=== PATIENT | female | born 1985 | race African-American/Black ===

== ENCOUNTER 2025-09-28 05:44 | Emergency (ER) | payer MEDICAID, SELFPAY ==
[2025-09-28 05:58] VITALS: BP 116/69; PULSE 75; RESP 20; TEMP 36.7; O2SAT 98; BMI 40.0
--- NOTE | 2025-09-28 06:11 | ED.MEDCLEAR ---
HPI - Medical Clearance General Chief complaint: Medical Clearance Stated complaint: needs a prescription refill Time Seen by Provider: 09/28/25 06:11 Source: patient Mode of arrival: ambulatory Limitations: no limitations History of Present Illness ED Provider: HPI Narrative: Patient works as a [employer], lives in [place] currently stays and with the patient in [place] does have Re5ult, states has had some insurance issues of being prescribed medications across state lines, requesting pantoprazole, Zoloft and Eliquis refill. Last dose of Eliquis today Related Information Previous Rx's ?Medication ?Instructions ?Recorded apixaban 5 mg tablet (Eliquis) 5 mg PO BID 2 months #120 tabs 09/28/25 pantoprazole 40 mg tablet,delayed 40 mg PO DAILY #90 tabs 09/28/25 release sertraline 100 mg tablet (Zoloft) 100 mg PO DAILY #30 tabs 09/28/25 Allergies Allergy/AdvReac Type Severity Reaction Status Date / Time No Known Allergies Allergy Verified 09/28/25 06:03 Review of Systems Constitutional: Constitutional: Reports as per [facility] Social History Social History Advance Directives: No Advance Directives Information Provided: Yes Physical Exam Exam: Exam: conversational alert and oriented x4 without obvious asymmetry movement in face, upper and lower extremities generally examined sitting in the chair ambulatory Vital Signs: Vital Signs: Last Vital Signs Temp 98.1 F 09/28/25 05:58 Pulse 75 09/28/25 05:58 Resp 20 09/28/25 05:58 BP 116/69 09/28/25 05:58 Pulse Ox 98 09/28/25 05:58 O2 Del Method Room Air 09/28/25 05:58 BMI result Body Mass Index 40.0 Medical Decision Making Medical Decision Making [facility] Narrative: 6:56 AM 09/28/2025 (Dr. Pop Pickering): anticipating medication running out she is here for refills no other concerns or complaints Differential Diagnosis Differential Diagnoses: The differential diagnosis associated with the presentation includes ( here for medication refill) Social Determinants Patient?s care significantly limited by Social Determinants of Health including: Problems related to employment ( employment across state lines where she has insurance) Discharge Plan Discharge Clinical Impression: Encounter for medication refill Additional Instructions: please make sure you continue working with the your PCP to refill your medications, specifically antipsychotic medications are not prescribed emergency department for the more than 2 weeks to a month relying on PCP or psychiatrist to refill his medications, I am prescribing Eliquis, and pantoprazole as well. This was sent to [facility] pharmacy Prescriptions: New pantoprazole 40 mg tablet,delayed release (DR/EC) 40 mg PO DAILY Qty: 90 0RF sertraline [Zoloft] 100 mg tablet 100 mg PO DAILY Qty: 30 0RF Eliquis 5 mg tablet 5 mg PO BID 60 Days Qty: 120 0RF Print Language: Algerian
--- OUTSIDE RECORDS SUMMARY | 2025-09-28 06:12 | XMS_ITS | Clinical Summary ---
Author Organization Formerly [facility] Address [address] [place] [address] Care Team Providers Care Block Breaker Name Role Phone Aditi Ulloa Laura SALES VICE PRESIDENT Unavailable [phone] Raymond Johnson MD Primary Care Provider [phone] Allergies No known active allergies Medications * This document contains information received from the source organization and may not represent a complete record from that organization. acamprosate (CAMPRAL) 333 MG tabletIndicatio ns:Alcohol use disorder, severe, dependence (HCC) Take 2 tablets (666 mg total) by mouth 3 (three) times a day. 180 tablet 01/16/20 25 Active apixaban (ELIQUIS) 5 MG tabletIndicatio ns:Pulmonary embolism, unspecified chronicity, unspecified pulmonary embolism type, unspecified whether acute cor pulmonale present (HCC) Take 1 tablet (5 mg total) by mouth 2 (two) times a day. 60 tablet 01/16/20 25 Active melatonin 3 MG Tab tablet Take 1 tablet (3 mg total) by mouth nightly. 03/13/20 25 Active gabapentin (NEURONTIN) 100 MG capsule Take 3 capsules (300 mg total) by mouth 2 times a day. 03/09/20 25 Active chlorhexidine (Periogard) 0.12 % oral solution 15 mL by Transmucosal route every 12 hours. 05/04/20 25 Active Vit-Fe Fumarate-FA (M-VIT PO) Take 1 tablet by mouth every 24 hours. 05/02/20 25 Active norethindrone (MICRONOR) 0.35 MG tablet Take 1 tablet (0.35 mg total) by mouth. 10/06/20 25 Active PANTOprazole (PROTONIX) 40 MG EC tablet Take 1 tablet (40 mg total) by mouth. 07/02/20 25 025 Active levETIRAcetam (KEPPRA) 750 MG tabletIndicatio ns:Seizure disorder (HCC) Take 2 tablets (1,500 mg total) by mouth 2 (two) times a day. 360 tablet 3 08/31/20 25 Active sertraline (ZOLOFT) 50 MG tablet Take 1 tablet (50 mg total) by mouth daily. 03/08/20 25 025 Discontin ued(Thera py completed ) diphenhydrAMINE (BENADRYL) 50 MG capsuleIndicati ons:Seizure disorder (HCC) Take 1 capsule (50 mg total) by mouth 3 times daily (every 8 hours) as needed for itching. 03/27/20 25 025 Discontin ued(Thera py completed ) levETIRAcetam (KEPPRA) 750 MG tabletIndicatio ns:Seizure disorder (HCC) Take 2 tablets (1,500 mg total) by mouth 2 (two) times a day. 360 tablet 3 08/02/20 25 025 Discontin ued(Reord er) Active Problems Problem Noted Date Diagnosed Date Pre-diabetes 03/26/2025 Assessment & Plan (03/26/2025 3:48 PM EDT): - HgbA1C 6.0 on 03/26 Mixed hyperlipidemia 03/23/2025 Assessment & Plan (03/26/2025 3:48 PM EDT): - Not on statin, lipid panel showed LDL 150, follow up with PCP Assessment & Plan (03/25/2025 9:59 PM EDT): - Not on statin, lipid panel pending Assessment & Plan (03/24/2025 6:03 PM EDT): - Not on statin, lipid panel pending Assessment & Plan (03/23/2025 5:06 PM EDT): - Not on statin, lipid panel pending Morbid obesity with BMI of 45.0-49.9 03/23/2025 Assessment & Plan (03/26/2025 3:48 PM EDT): - Recommend lifestyle modification Assessment & Plan (03/25/2025 9:59 PM EDT): - Recommend lifestyle modification Assessment & Plan (03/24/2025 6:03 PM EDT): - Recommend lifestyle modification Assessment & Plan (03/23/2025 5:06 PM EDT): - Recommend lifestyle modification Anxiety and depression 03/23/2025 Assessment & Plan (03/26/2025 3:48 PM EDT): - On sertraline Assessment & Plan (03/25/2025 9:59 PM EDT): - On sertraline Assessment & Plan (03/24/2025 6:03 PM EDT): - On sertraline Assessment & Plan (03/23/2025 5:06 PM EDT): - On sertraline Breakthrough Seizures 03/22/2025 Assessment & Plan (03/26/2025 3:48 PM EDT): - On home Keppra with increased dose 1500 mg twice daily - On home gabapentin - On prn ativan - Neurology consulted, seizure precaution Assessment & Plan (03/25/2025 9:59 PM EDT): - EEG no seizure - MRI brain no acute problems - On home Keppra with increased dose 1500 mg twice daily - On prn ativan - On home gabapentin - Neurology consulted - PT recommended SNF on 03/25 Assessment & Plan (03/24/2025 6:03 PM EDT): - EEG no seizure - MRI brain no acute problems - On home Keppra with increased dose 1500 mg twice daily - On prn ativan - On home gabapentin - Neurology consulted Assessment & Plan (03/23/2025 5:06 PM EDT): - EEG no seizure - MRI brain pending - On home Keppra with increased dose 1500 mg twice daily - On prn ativan - On home gabapentin - Neurology consulted UTI with hematuria 03/22/2025 Assessment & Plan (03/26/2025 3:48 PM EDT): - Urine culture positive for E.coli - nitrofurantoin /05 for 5 days Assessment & Plan (03/25/2025 9:59 PM EDT): - Urine culture positive for E.coli - nitrofurantoin /05 for 5 days Assessment & Plan (03/24/2025 6:03 PM EDT): - Urine culture positive for E.coli - nitrofurantoin /05 for 5 days Assessment & Plan (03/24/2025 6:04 PM EDT): - On nitrofurantoin 06/05 for 5 days Severe alcohol use disorder 12/20/2024 Cocaine use disorder, mild, abuse 12/19/2024 Homeless 12/19/2024 Unemployed 12/19/2024 Tobacco dependence 12/19/2024 Assessment & Plan (03/26/2025 3:48 PM EDT): - On as needed nicotine gum Assessment & Plan (03/25/2025 9:59 PM EDT): - On as needed nicotine gum Assessment & Plan (03/24/2025 6:03 PM EDT): - On as needed nicotine gum Assessment & Plan (03/23/2025 5:06 PM EDT): - On as needed nicotine gum PCOS (polycystic ovarian syndrome) 12/19/2024 Alcohol abuse sober since 12/202412/18/2024 Assessment & Plan (03/26/2025 3:48 PM EDT): - On folic acid and multivitamin and thiamine - On home acamprosate Assessment & Plan (03/25/2025 9:59 PM EDT): - On folic acid and multivitamin and thiamine - On home acamprosate Assessment & Plan (03/24/2025 6:03 PM EDT): - On folic acid and multivitamin and thiamine - On home acamprosate Assessment & Plan (03/23/2025 5:06 PM EDT): - On folic acid and multivitamin and thiamine - On home acamprosate History of pulmonary embolus 12/18/2024 Assessment & Plan (03/26/2025 3:48 PM EDT): - On home apixaban Assessment & Plan (03/25/2025 9:59 PM EDT): - On home apixaban Assessment & Plan (03/24/2025 6:03 PM EDT): - On home apixaban Assessment & Plan (03/23/2025 5:06 PM EDT): - On home apixaban History of DVT 12/18/2024 Assessment & Plan (03/26/2025 3:48 PM EDT): - On home apixaban Assessment & Plan (03/25/2025 9:59 PM EDT): - On home apixaban Assessment & Plan (03/24/2025 6:03 PM EDT): - On home apixaban Assessment & Plan (03/23/2025 5:06 PM EDT): - On home apixaban Seizure disorder 12/18/2024 Alcohol intoxication 12/16/2024 Encounters Date Type Department Care Team Description 08/31/2025 2:15 PM EST Telemedicine [id number] [address] [place] [phone] Stephenie Reed, SALES VICE PRESIDENT Severe alcohol use disorder (HCC) (Primary Dx); Seizure disorder (HCC); Anxiety and depression 08/19/2025 12:56 PM EST - 08/19/2025 5:02 PM EST Emergency [facility] Emergency Department [address] [place] [phone] Hong Rogers MD Current mild episode of major depressive disorder, unspecified whether recurrent (Primary Dx); Mood disturbance Discharge Disposition: Home or Self Care 07/12/2025 9:26 AM EDT - 07/12/2025 11:59 PM EDT Hospital Encounter [facility] [address] [place] [phone] Stephenie Reed, SALES VICE PRESIDENT Discharge Disposition: Home or Self Care 07/11/2025 9:34 AM EDT - 07/11/2025 11:59 PM EDT Hospital Encounter [facility] [address] [place] [address] [place] [phone] Pedro Hall MD Seizure disorder (HCC) Discharge Disposition: Home or Self Care from Last 3 Months Social History Tobacco Use Types Packs/Day Years Used Date Smoking Tobacco: Every Day Cigarettes Tobacco Cessation:Ready to Q uit: Not Asked; Counseling Given: Not Answered Alcohol Use Standard Drinks/Week Comments Yes 0 (1 standard drink = 0.6 oz pure alcohol) V odka 2-3 pints or 4-5 25 oz natural Ice. [facility] Utilities Answer Date Recorded In the past 12 months has th e [employer], gas, oil, or water motify threatened to shut off services in your home? No 03/23/2025 AUDIT-C Answer Date Recorded Q1: How often do you have a drink containing alcohol? Never 03/22/2025 Q2: How many drinks containi ng alcohol do you have on a typical day when you are drinking? Patient does not drink Q3: How often do you have si x or more drinks on one occasion? Never 03/22/2025 Overall Financial Resource Strain (CARDIA) Answe r Date Recorded How hard is it for you to pa y for the very basics like food, housing, medical care, and heating? Not hard at all 03/23/2025 Hunger Vital Sign Answer Date Recorded Within the past 12 months, y ou worried that your food would run out before you got the money to buy more. Never true 03/23/20 25 Within the past 12 months, t he food you bought just didn't last and you didn't have money to get more. Never true 03/23/2025 PRAPARE - Transportation Answer Date Re corded In the past 12 months, has l ack of transportation kept you from medical appointments or from getting medications? No 03/2025 In the past 12 months, has l ack of transportation kept you from meetings, work, or from getting things needed for daily living? No 03/23/2025 Housing Stability Vital Sign Answer Clayton e Recorded In the last 12 months, was t here a time when you were not able to pay the mortgage or rent on time? No 03/23/2025 In the past 12 months, how m any times have you moved where you were living? 0 03/23/2025 At any time in the past 12 m [facility], were you homeless or living in a longterm (including now)? No 03/23/2025 Comments No Sex and Gender Information Value Date Recorded Sex Assigned at Female 04/23/2024 7:53 PM EDT Legal Sex Female 1:48 PM EDT Gender Identity Female 04/23/2024 7:53 PM EDT Sexual Orientation Heterosexual (straight) 04/23 7:53 PM EDT Last Filed Vital Signs Vital Sign Reading Time Taken Comments Blood Pressure 109/51 08/19/2025 4:59 PM EST Pulse 80 08/19/2025 4:59 PM EST Temperature 36.8 C (98.3 F) 08/19/2025 4:59 PM EST Respiratory Rate 16 08/19/2025 4:59 PM EST Oxygen Saturation 99% 08/19/2025 4:59 PM EST Inhaled Oxygen Concentration - - Weight 113 kg (248 lb 4 oz) 05/15/2025 10:18 AM EDT Height 152.4 cm (5') 12/18/2024 10:53 AM EST Body Mass Index 48.48 12/18/2024 10:53 AM EST Plan of Treatment Health Maintenance Due Date Last Done Comments Hepatitis C Virus Screening 1983 HIV Screening 1996 DTaP/Tdap/Td Vaccines (1 - Tdap) 2002 Hepatitis B Vaccines (1 of 3 - 19+ 3-dose series) 2002 Pneumococcal Vaccine: Pediat jaylin (0-5 Years) and At-Risk Patients (6 to 49 Years) (1 of 2 - PCV) 2002 Pap Smear (Ages 21-65) 2004 Mammogram 2023 Influenza Vaccine 05/18/2025 COVID-19 Vaccine ( - 2024- season) 2025 Hemoglobin A1C Discontinued 03/26/2025, 04/21/2024 Lipid Panel Discontinued 03/26/2025 HPV Vaccines (No Doses Required) Completed Procedures Procedure Name Priority Date/Time Associated Diagnosis Comments PHENCYCLIDINE (PCP) SCREEN, URINE STAT 08/19/2025 3:14 PM EST OPIATE SCREEN, URINE STAT 08/19/2025 3:14 PM EST ETHANOL, URINE STAT 08/19/2025 3:14 PM EST COCAINE SCREEN, URINE STAT 08/19/2025 3:14 PM EST CANNABINOID SCREEN, URINE STAT 08/19/2025 3:14 PM EST BENZODIAZEPINE SCREEN, URINE STAT 08/19/2025 3:14 PM EST BARBITURATE SCREEN, URINE STAT 08/19/2025 3:14 PM EST POCT GLUCOSE, FINGERSTICK (POCGLU) (NO CHARGE) Routine 08/19/2025 2:10 PM EST EEG AMB (TAKE HOME) Routine 07/12/2025 1 0:07 AM EDT Seizure disorder (HCC) HEMOGLOBIN A1C WITH ESTIMATED AVERAGE GLUCOSE Routine 03/26/2025 6:14 AM EDT LIPID PANEL Routine 03/26/2025 6:14 AM EDT from Last 3 Months or Most Recently Relevant to Health Maintenance Results * Cannabinoid Screen, Urine (08/19/2025 3:14 PM EST) Cannabinoid Screen, Urine Negative Negative <50 ng/mL 08/19/2025 3:46 PM EST [facility] Comment:* FOR MEDICAL PURPOS ES ONLY * Urine Urine specimen / Unknown 08/19/2025 3:14 PM EST 08/19/2025 3:16 PM EST us Wale Walton APRN URINE ORDERABLES Final Result [address] [address], [address] Lic [id number], [place] Lic [id number] [employer], [place] * Phencyclidine (PCP) Screen, Urine (08/19/2025 3:14 PM EST) PCP Screen, Urine Negative Negative <25 ng/mL 08/19/2025 10:49 PM EST [facility] Comment:* FOR MEDICAL PURPOS ES ONLY * Urine Urine specimen / Unknown 08/19/2025 3:14 PM EST 08/19/2025 3:16 PM EST us Wale Walton SALES VICE PRESIDENT URINE ORDERABLES Final Result [facility] [address] [place] [address], [address] [address] * Opiate Screen, Urine (08/19/2025 3:14 PM EST) Opiate, Urine Negative Negative <300 ng/mL 08/19/2025 3:46 PM EST [facility] Comment:* FOR MEDICAL PURPOS ES ONLY * Urine Urine specimen / Unknown 08/19/2025 3:14 PM EST 08/19/2025 3:16 PM EST Wale Walton SALES VICE PRESIDENT URINE ORDERABLES Final Result Performing Organization Address [facility] Co de Phone Number [address] [address], [address] [place] Lic [id number], [place] Lic [id number] [employer], [place] * Ethanol, Urine (08/19/2025 3:14 PM EST) Ethanol, Urine Negative Negative <11 mg/dL 08/19/2025 3:46 PM EST [facility] Urine Urine specimen / Unknown 08/19/2025 3:14 PM EST 08/19/2025 3:16 PM EST Walecooper Anton SALES VICE PRESIDENT URINE ORDERABLES Final Result Performing Organization Address City/[facility]/ZIP Co de Phone Number [address] [address], [address] [place] Lic [id number], CAP Lic [id number] [place], [place] * Cocaine Screen, Urine (08/19/2025 3:14 PM EST) Cocaine Screen, Urine Negative Negative <300 ng/mL 08/19/2025 3:46 PM EST [facility] Comment:* FOR MEDICAL PURPOS ES ONLY * Urine Urine specimen / Unknown 08/19/2025 3:14 PM EST 08/19/2025 3:16 PM EST Wale Walton APRN URINE ORDERABLES Final Result [address] [address], [address] [place] Lic [id number], [place] Lic [id number] [place], [place] * Benzodiazepine Screen, Urine (08/19/2025 3:14 PM EST) Benzodiazepine Screen, Urine Negative Negative <200 ng/mL 08/19/2025 3:46 PM EST [facility] Comment:* FOR MEDICAL PURPOS ES ONLY * Urine Urine specimen / Unknown 08/19/2025 3:14 PM EST 08/19/2025 3:16 PM EST Wale Walton APRN URINE ORDERABLES Final Result [address] [address], [address] [place] Lic [id number], [place] Lic [id number] [place], [place] * Barbiturate Screen, Urine (08/19/2025 3:14 PM EST) Barbiturate Screen, Urine Negative Negative <200 ng/mL 08/19/2025 3:46 PM EST [facility] Comment:* FOR MEDICAL PURPOS ES ONLY * Urine Urine specimen / Unknown 08/19/2025 3:14 PM EST 08/19/2025 3:16 PM EST Wale Walton SALES VICE PRESIDENT URINE ORDERABLES Final Result Performing Organization Address City/[facility]/ZIP Co de Phone Number [address] [address], [address] [place] Lic [id number], [place] Lic [id number] [employer], [place] * POCT Glucose, Fingerstick (08/19/2025 2:10 PM EST) POC Glucose 98 65 - 99 mg/dL 08/19/2025 2:17 PM EST Comment:Notified RN Blood specimen / Unknown 08/19/2025 2:10 PM EST 08/19/2025 2:17 PM EST Hong Rogers MD POINT OF CARE TEST ORDERAB LES Final Result Performing Organization Address City/[facility]/ZIP Co de Phone Number HOSPITAL LAB See Below * EEG 24 HOURS- UNATTENDED (07/12/2025 10:07 AM EDT) Narrative NATUS - 07/12/2025 10:07 AM EDT Bart Acosta MD 07/12/2025 2:43 PM ADULT AMBULATORY CONTINUOUS EEG REPORT Facility:[facility] Patient and : Santy Flores 1985 Date of Procedure: 07/11/2025 Referring:Pedro Hall MD Recording Period: 10:16:55 hrs on 07/11/25 through 9:39:41 hrs on 07/12/25. CLINICAL INFORMATION: The patient is a 40 y.o. female undergoing EEG to evaluate seizure frequency. SEIZURE MEDICATIONS: gabapentin and levetiracetam RECORDING CONDITIONS: EEG monitoring was performed during home activities. A minimum of 20 electrodes were applied according to the International 10-20 System. Data were obtained, stored, and interpreted according to ACNS guidelines (J Clin Neurophysiol 2006;23(2):85-183) utilizing referential montage recording, with reformatting to longitudinal, transverse bipolar, and referential montages as necessary for interpretation, along with digital/automated EEG analysis of Evin and Event detections. Logsheet returned: Yes brine process operator last name: roger DESCRIPTION OF EEG PATTERNS Posterior Activity: In the maximally awake state, posterior frequencies were symmetric consisting of 10 Hz activity with reactivity to eye opening. Background Activity: The background was symmetric and continuous consisting of a normal voltage, age-appropriate admixture of frequencies; anterior-posterior organization was normal. Reactivity/Variability/Sleep: Reactivity and state changes were present with relative disruption of the posterior rhythm and slowing in drowsiness. In deeper sleep, there were well-formed V waves, sleep spindles, and K complexes that were symmetric. Focal Slowing: None. Interictal Epileptiform Abnormalities: None. Other: Photic stimulation produced a driving response that was symmetric. Hyperventilation produced no clear changes. ECG: No notable ECG abnormalities were apparent. DESCRIPTION OF DAILY EEG AND EVENTS: Monitoring Day 1: 07/11/2025 1 event(s) reported or detected. Event #1 EEG Onset: NA EEG End: NA Patient/ family button time: 17:33:05 Logsheet time: 5:33pm Habitual: Unknown Patient Description of Event: Light headed and tired EEG: No EEG abnormalities were observed in association with this reported event. ECG shows pre event sinus rhythm around 75 bpm, followed post event marker by increase to around 100 bpm and associated chewing artifact. Monitoring Day 2: 07/12/25 1 event(s) reported or detected. Event #2 EEG Onset: NA EEG End: NA Patient/ family button time: 05:41:22 Logsheet time: 5:45 Habitual: Unknown Patient Description of Event: Shaky EEG: No EEG abnormalities were associated with this reported event. ECG demonstrates sinus rhythm that increases from 80 bpm to 100 bpm. E.E.G. CLASSIFICATION: Abnormal 1 day continuous ambulatory EEG Monitoring Study (without video) due to: Non-Epileptic Events: 2 potentially habitual event(s) captured involving shaky and lightheaded with no associated ictal EEG change. Ictal Events: None. Interictal Abnormalities: None. IMPRESSION: This EEG captured potentially habitual events most consistent with unspecified non-epileptic events. Bart Acosta MD. ABPN/ABPN UNLEAVENED DOUGH MIXER/ ABPN Epilepsy/ [facility] FOR EEG LAB USE: EEG Normal with Non-Epileptic Events Unspecified (!qxz&v52); Encephalopathy none (!qxz&v2); Focal Slowing None (!qxz&v12); Epileptiform Interictals: None (!qxz&v12) EVENTS ABNORMAL: Seizure None (!qxz&v21); Status Epilepticus None (!qxz&v34); Ictal-Interictal Continuum No (!qxz&v47) us Pedro Hall MD NEUROLOGY ORDERABLES Edited Resu lt - Final Performing Organization Address City/[facility]/ZIP Co de Phone Number [facility] [address] [place] [address], * (ABNORMAL) Hemoglobin A1c with Estimated Average Glucose (AM) (03/26/2025 6:14 AM EDT) Hemoglobin A1C 6.0(H) <5.7 % 03/26/2025 11:57 AM EDT [facility] Comment: A1c% Interpretation 5.7 - 6.0 Increase risk of diabetes 6.1 - 6.4 Higher risk of diabetes > or = 6.5 Consistent with diabetes Diabetes Care, 33(Supp 1):S1-S61, 2009 Estimated Average Glucose 126 mg/dL 03/26/2025 11:57 AM EDT [facility] Blood Blood specimen / Unknown 03/26/2025 6:14 AM EDT 03/26/2025 6:26 AM EDT us Darling Greenberg MD LAB BLOOD ORDERABLES Final Resul t Performing Organization Address [facility] [place] [address], [address] [address] * (ABNORMAL) Lipid Panel (AM) (03/26/2025 6:14 AM EDT) Cholesterol, Total 225(H) <200 mg/dL 2024 10:42 AM EDT [facility] Triglycerides 108 <150 mg/dL 03/26/2025 10:42 AM EDT [facility] Cholesterol, HDL 53 >39 mg/dL 03/26/20 25 10:42 AM EDT [facility] Estimated LDL 150(H) <130 mg/dL 03/26/2025 10:42 AM EDT [facility] Comment: NCEP Guidelines: < 100 mg/dL Optimal 100 - 129 mg/dL Near Optimal/Above Optimal 130 - 159 mg/dL Borderline High 160 - 189 mg/dL High >/= 190 mg/dL Very High Cholesterol/HDL Ratio 4.2 0.0 - 5.0 Ratio 03/26/2025 10:42 AM EDT [facility] Comment: Relative Risk Ratio - Male Ratio - Female 0.5 3.4 3.3 1.0 5.0 4.4 2.0 9.6 7.1 3.0 23.4 11.0 Blood Blood specimen / Unknown 03/26/2025 6:14 AM EDT 03/26/2025 6:26 AM EDT Darling Greenberg MD LAB BLOOD ORDERABLES Final Resul t Performing Organization Address City/State/[facility] Co de Phone Number [address] [address], [address] [address] from Last 3 Months or Most Recently Relevant to Health Maintenance [place] [address] [place] [address] [facility] Advance Directives * Full Code (Latest Code Status on File) Date Activated Date Inactivated Comments 03/22/2025 6:41 PM 08/19/2025 12:54 PM Care Teams Block Breaker Relationship Specialty Start Date End Date Raymond Johnson MD [address] [place] [id number] PCP - General Internal Medicine 08/19/25 Aditi Ulloa APRN [address] [place] [address] Nurse Practitioner Psychiatry, General 12/22/24
--- OUTSIDE RECORDS SUMMARY | 2025-09-28 06:12 | XMS_ITS | Clinical Summary ---
Author Organization [facility] Address [address] [place] [address] Phone Care Team Providers Care Watch Hairspring Assembler Name Role Phone Raymond Johnson MD Primary Care Provider [phone] Allergies No known active allergies Medications acetaminophen (TYLENOL) 325 mg tablet Take 2 tablets (650 mg total) by mouth every 6 (six) hours as needed. 0 Active albuterol HFA (PROAIR HFA ; PROVENTIL HFA ; VENTOLIN HFA) 90 mcg/actuation inhaler Inhale 2 puffs into the lungs every 6 (six) hours as needed for wheezing. 3 Active apixaban (ELIQUIS) 5 mg tablet Take 1 tablet (5 mg total) by mouth every 12 (twelve) hours. 4 Active folic acid (FOLVITE) 1 mg tablet Take 1 tablet (1 mg total) by mouth daily. 4 Active levETIRAcetam (KEPPRA) 500 mg tablet Take 1 tablet (500 mg total) by mouth 2 (two) times a day. 4 Active thiamine 100 mg tablet Take 1 tablet (100 mg total) by mouth daily. 4 Active methocarbamoL (ROBAXIN) 750 mg tablet Take 1 tablet (750 mg total) by mouth 3 (three) times a day if needed for muscle spasms for up to 10 days. 30 tablet 5 Active Additional Information Patient not taking.Reported on 07/23/2025 sertraline (ZOLOFT) 50 mg tablet Take 1 tablet (50 mg total) by mouth 1 (one) time each day. 5 Active sertraline (ZOLOFT) 25 mg tablet Take 2 tablets (50 mg total) by mouth 1 (one) time each day. Active pantoprazole (PROTONIX) 40 mg EC tabletIndication s:Gastroesophage al reflux disease, unspecified whether esophagitis present Take 1 tablet (40 mg total) by mouth 1 (one) time each day. Do not crush, chew, or split. 30 each 2 5 09/30/20 25 Active nicotine polacrilex (COMMIT) 4 mg lozengeIndicatio ns:Smoking history Dissolve 1 lozenge (4 mg total) in the mouth every 2 (two) hours if needed for smoking cessation. 270 each 5 Active Additional Information Patient not taking.Reported on 07/23/2025 nicotine (NICODERM CQ) 21 mg/24 [address]Indications:[address] o[address] history Place 1 patch on the skin 1 (one) time each day at the same time. 56 each 5 Active Additional Information Patient not taking.Reported on 07/23/2025 norethindrone (KAYODE,GAVIOTA,HE ATHER,MICRONOR) 0.35 mg tabletIndication s:PCOS (polycystic ovarian syndrome) Take 1 tablet (0.35 mg total) by mouth 1 (one) time each day. 84 tablet 5 Active Active Problems Problem Noted Date Diagnosed Date Chest pain 05/20/2024 Seizure 04/21/2024 Syncope and collapse 04/20/2024 Acute deep vein thrombosis ( DVT) of popliteal vein of right lower extremity 05/15/2020 Acute pulmonary embolism 05/15/2020 Morbid obesity 05/15/2020 Secondary hypercoagulable state 05/15/2020 Pulmonary embolism, bilateral 05/14/2020 Diabetes 03/15/2020 Hypercholesterolemia 03/15/2020 PCOS (polycystic ovarian syndrome) 03/15/2020 Encounters Date Type Department Care Team Description 08/01/2025 12:52 PM EDT - 08/01/2025 11:59 PM EDT Hospital [facility] [address] [place] [address] [place] [facility] Shortness of breath Discharge Disposition: Home or Self Care 07/30/2025 4:00 PM EDT - 07/30/2025 11:59 PM EDT Hospital Encounter [facility] [address] [place] [id number] At risk for obstructive sleep apnea Discharge Disposition: Home or Self Care 07/23/2025 9:30 AM EDT Office Visit Obstetrics and Gynecology [facility] [address] [place] [address] Cori Sierra, CAREY PCOS (polycystic ovarian syndrome) (Primary Dx) 07/19/2025 9:55 AM EDT - 07/19/2025 11:59 PM EDT Hospital Encounter [facility] Pulmonary Lab [address] [place] [id number] Shortness of breath Discharge Disposition: Home or Self Care 07/10/2025 1:14 PM EDT - 07/10/2025 11:59 PM EDT Hospital Encounter [facility] OB Ultrasound [address] [place] [phone] Irregular menses Discharge Disposition: Home or Self Care 07/03/2025 Telephone Obstetrics and Gynecology - [address] [place] [id number] Arun Cervantes RN 07/02/2025 10:00 AM EDT Clinical Support Pul[facility]ology - [facility] [address] [place] [address] Gastroesophageal reflux disease, unspecified whether esophagitis present (Primary Dx); Shortness of breath; At risk for obstructive sleep apnea; Smoking history from Last 3 Months Immunizations Immunization Administration Dates Next Due Tdap Tetanus diptheria acell ular pertussis (Boostrix; Adacel) 7yo and older 12/18/2023,07/03/2022 Medical History Medical History Date Comments Diabetes mellitus ([facility] V24, [facility] V28) DVT (deep venous thrombosis) ([facility] V24, [facility] V28) Hypercholesterolemia PCOS (polycystic ovarian syndrome) Pulmonary embolism ([facility] V24, [facility] V28) Social History Tobacco Use Types Packs/Day Years Used Date Smoking Tobacco: Never Assessed Housing Instability Answer Date Recorde d Are you worried that in the next 2 months you may not have stable housing? Yes 06/24/2025 Food Access & Nutrition Answer Date Rec orded Do you have access to a vari ety of food including fruits and vegetables? No 06/24/2025 Access to Healthcare Answer Date Record ed Within the last 3 months, ho w many times did you visit the emergency department for your medical care? 6 06/24/2025 Health Literacy Answer Date Recorded How often do you need to hav e someone help you when you read instructions, pamphlets, or other written material from your doctor or pharmacy? Never 06/24/2025 Caregiver: How often do you need to have someone help you when you read instructions, pamphlets, or other written material from your doctor or pharmacy? Not on file 06/24/2025 Financial Risk Answer Date Recorded How hard is it for you to pa y for the very basics like food, housing, medical care, and air conditioning / heating? Somewhat hard 06/24/2025 Transportation Answer Date Recorded Has the lack of transportati on kept you from meetings, work, or from getting things needed for daily living? Yes Has the lack of transportati on kept you from medical appointments or from getting medications? Yes 06/24/2025 Social Isolation Answer Date Recorded How often do you feel lonely or isolated from th ose around you? Often 06/24/2025 Food Risk Answer Date Recorded Within the past 12 months we worried whether our food would run out before we got money to buy more. Never true 06/24/2025 Within the past 12 months th e food we bought just didn't last and we didn't have money to get more. Never true 06/24/2025 Dependent Care Answer Date Recorded Do you need help finding or paying for care for your loved ones. For example, children's author or elderly care for an older adult? No 06/24/2025 Education Answer Date Recorded Do you think completing more education or training, like finishing a GED, going to college, or learning a trade, would be helpful for you? Yes 06/24/2025 Employment and Income Answer Date Recor ded During the last four weeks, have you been actively looking for work? No 06/24/2025 Living Situation Answer Date Recorded What is your living situation? Unrecognized valu e 06/24/2025 Comments Unknown Sex and Gender Information Value Date Recorded Sex Assigned at Female 11/18/2024 8:27 PM EST Legal Sex Female 7:12 PM EST Gender Identity Female 11/18/2024 8:27 PM EST Sexual Orientation Straight 12/09/2024 8: 05 PM EST Last Filed Vital Signs Vital Sign Reading Time Taken Comments Blood Pressure 108/66 08/01/2025 2:04 PM EDT Pulse 80 07/02/2025 9:56 AM EDT Temperature 36.6 C (97.9 F) 07/02/2025 9:56 AM EDT Respiratory Rate 20 07/02/2025 9:56 AM EDT Oxygen Saturation 100% 07/02/2025 9:56 AM EDT Inhaled Oxygen Concentration - - Weight 117 kg (257 lb 15 oz) 08/01/2025 2:04 PM EDT Height 167.6 cm (5' 6 ) 08/01/2025 2:04 PM EDT Body Mass Index 41.63 08/01/2025 2:04 PM EDT Plan of Treatment Upcoming Encounters Date Type Department Care Team (Late st Contact Info) Description 10/01/2025 9:45 AM EST Clinical Support [facility]ology - [facility] [address] [place] [address] 10/02/2025 3:30 PM EST Appointment [address] [address] 10/15/2025 12:30 PM EST Clinical Support G[facility]enterology - [facility] [address] [place] [address] 10/24/2025 8:45 AM EST Office Visit Obstetrics and Gynecology [facility] [address] [place] [address] [facility] [address] [place] [address] Health Maintenance Due Date Last Done Comments Breast Cancer Screening 1983 Diabetes: Annual Foot Exam 1993 Diabetes: Annual Retina Eye Exam 1993 Hepatitis A Vaccines (1 of 2 - Risk 2-dose series) 2002 Hepatitis B Vaccines (1 of 3 - 19+ 3-dose series) 2002 Pneumococcal Vaccine: Pediatrics (0 to 5 Years) and At-Risk Patients (6 to 49 Years) (1 of 2 - PCV) 2002 HPV Vaccines (1 - 3-dose SCDM series) 2010 Diabetes: Annual Urine Albumin-Creatinine Ratio (uACR) 10/04/2022 COVID-19 Vaccine ( season) 2025 Influenza Vaccine (#1) 2025 Diabetes: Blood Sugar Control Test (HGBA1C) 09/25/2025 03/26/2025, 04/21/2024, 04/21/2024, Additional history exists Diabetes: Annual GFR (Glomerular Filtration Rate) 03/26/2026 03/26/2025, 03/26/2025, 03/22/2025, Additional history exists Social Influencers of Health Screening 06/24/2026 06/24/2025 Cholesterol Screening (Lipid Panel) 03/26/2030 03/26/2025, 05/21/2024, 05/21/2024, Additional history exists Cervical Cancer Screening: HPV 07/03/2030 07/03/2025, 07/03/2025 DTaP,Tdap,and Td Vaccines (3 - Td or Tdap) 12/17/2033 12/18/2023, 07/03/2022 RSV Immunization Adult Patients (1 - 1-dose 75+ series) 2058 HIV Screening Completed 06/25/2025 Hepatitis C Screening Completed 06/25/2025 Depression Screening Completed 07/16/2025 HIB Vaccines Aged Out No longer eligi ble based on patient's age to complete this topic IPV Vaccines Aged Out No longer eligi ble based on patient's age to complete this topic MMR Vaccines Aged Out No longer eligi ble based on patient's age to complete this topic Meningococcal ACWY Vaccine Aged Out N o longer eligible based on patient's age to complete this topic Meningococcal B Vaccine Aged Out No l onger eligible based on patient's age to complete this topic RSV Immunization Patients Under 20 months Aged Out No longer eligible based on patient's age to complete this topic Varicella Vaccines Aged Out No longer eligible based on patient's age to complete this topic Procedures Procedure Name Priority Date/Time Associated Diagnosis Comments TRANSTHORACIC ECHOCARDIOGRAM (TTE) COMPLETE Routine 08/01/2025 1:50 PM EDT Shortness of breath HOME SLEEP TEST Routine 08/01/2025 10:24 AM EDT At risk for obstructive sleep apnea POC URINE AUTO W/O MICRO Routine 07/23/2025 10:22 AM EDT PCOS (polycystic ovarian syndrome) HC DIFFUSING CAPACITY Routine 07/19/2025 10:51 AM EDT Shortness of breath US PELVIS TRANSVAGINAL NON OB Routine 07/10/2025 2:49 PM EDT Irregular menses US PELVIS NON OB COMPLETE Routine 07/10/2025 2:49 PM EDT Irregular menses HPV GENOTYPE Routine 07/03/2025 11:44 AM EDT Cervical cancer screening HPV HIGH RISK PCR Routine 07/03/2025 11: 43 AM EDT Cervical cancer screening HEPATITIS C ANTIBODY Routine 06/25/2025 2:36 PM EDT Screen for STD (sexually transmitted disease) HIV 1, 2 ANTIBODY, P24 ANTIGEN WITH REFLEX TO DIFFERENTIATION Routine 06/25/2025 2:36 PM EDT Screen for STD (sexually transmitted disease) BASIC METABOLIC PANEL STAT 11/19/2024 1:22 AM EST LIPID PANEL Routine 05/21/2024 HEMOGLOBIN A1C Routine 04/21/2024 from Last 3 Months or Most Recently Relevant to Health Maintenance Results * (ABNORMAL) TRANSTHORACIC ECHOCARDIOGRAM (TTE) COMPLETE (08/01/2025 1:50 PM EDT) LV EDV (A2C) 79 mL CV PACS LV EDV (A4C) 86 mL CV PACS LV Diastolic Volume (BP) 83 46 - 106 mL CV PACS LV ESV (A2C) 25 mL CV PACS LV ESV (A4C) 33 mL CV PACS LV Systolic Volume (BP) 30 14 - 42 mL CV PACS Left Ventricle Isovolumic Relaxation Time 76 ms CV PACS IVSD 0.7 0.6 - 0.9 cm CV PACS LVIDD 4.2 3.8 - 5.2 cm CV PACS LVIDS 2.9 2.2 - 3.5 cm CV PACS LVOT Mean Grad 4 mmHg CV PACS LVOT Peak VTI 26.3 cm CV PACS LVOT Mean Aren 0.9 m/s CV PACS LVOT Peak Aren 1.3 m/s CV PACS LVOT Peak Gradient 7 mmHg CV PACS LVPWD 0.7 0.6 - 0.9 cm CV PACS MV E' Tissue Velocity Lateral 16 cm/s CV PACS MV E' Tissue Velocity Septal 9 cm/s CV PACS Ejection Fraction (A2C) 68 % CV PACS Ejection Fraction (A4C) 62 % CV PACS Ejection Fraction (BP) 64 % CV PACS Left Atrium Minor Newton 5.1 cm CV PACS Left Atrium Major Newton 4.8 cm CV PACS LA Area Sys (A2C) 12 cm2 CV PACS LA Area Sys (A4C) 12 cm2 CV PACS LA Volume (BP) 24 mL CV PACS LA Size 3.5 cm CV PACS RA Area 9.4 cm2 CV PACS RA 2D Volume 18 mL CV PACS Aortic Valve Cusp Separation mMode 2.3 cm CV PACS AV Peak Aren 1.2 m/s CV PACS AV Peak Gradient 5 mmHg CV PACS Aortic Root 3.5 cm CV PACS Aortic Root M-mode 3.50 cm CV PACS IVC Proximal 1.1 cm CV PACS MV Deceleration Stark 3.9 m/s2 CV PACS E Wave Deceleration Time 141 119 - 242 ms CV PACS MV PHT 41 ms CV PACS MV Peak A Aren 0.48 m/s CV PACS MV Peak E Aren 0.55 m/s CV PACS MV Area PHT 5.4 cm2 CV PACS PV Peak Velocity 0.7 m/s CV PACS PV Peak Gradient 2 mmHg CV PACS RV Diastolic Basal Dimension 2.8 2.5 - 4.1 cm CV PACS RV S' 11 cm/s CV PACS TAPSE 20 mm CV PACS E/E' Ratio Septal 6 CV PACS E/E' Ratio Averaged 5 CV PACS Relative Wall Thickness ratio 0.33 CV PACS FS 31 % CV PACS LV Mass 2D 85 g CV PACS AV Velocity Ratio 1.08 CV PACS E/A Ratio 1.1 CV PACS E/E' Ratio Lateral 3 CV PACS LA/Ao Ratio 1.0 CV PACS BSA 2.33 m2 CV PACS LV Diastolic Volume Index (BP) 37 29 - 61 mL/m2 CV PACS LV Systolic Volume Index (BP) 13 8 - 24 mL/m2 CV PACS LV EDV Index (A4C) 39 mL/m2 CV PACS LV ESV Index (A4C) 15 mL/m2 CV PACS LV EDV Index (A2C) 35 mL/m2 CV PACS LV ESV Index (A2C) 11 mL/m2 CV PACS LA Volume Index (BP) 11 mL/m2 CV PACS LVIDD Index 1.88 cm/m2 CV PACS LVIDS Index 1.30 cm/m2 CV PACS LV Mass Index 2D 38(A) 44 - 88 g/m2 CV PACS LA Dimension Index 2D 1.6 cm/m2 CV PACS RA 2D Volume Index 8 15 - 27 mL/m2 CV PACS Aortic Root Index 1.57 cm/m2 CV PACS Anatomical Region Laterality Modality Ultrasound Narrative 08/01/2025 3:11 PM EDT Left ventricle cavity size is normal. Left ventricular systolic function is in the normal range with an ejection fraction in the 55-70% range. No regional LV wall motion abnormalities noted. Left ventricle wall thickness is normal. Right ventricle cavity is normal. Right ventricular systolic function is normal. No significant valvular dysfunction. No pericardial effusion. Left Ventricle Left ventricle cavity size is normal. Wall thickness is normal. Systolic function is normal with an ejection fraction in the 55-70% range. There are no regional LV wall motion abnormalities. There is no diastolic dysfunction. Right Ventricle Right ventricle cavity appears normal. Systolic function is normal. Normal TAPSE (> 17 mm). Normal systolic excursion velocity by TDI (>9.5 cm/s). Left Atrium Left atrium cavity size is normal. Right Atrium Right atrium cavity is normal. IVC/SVC Inferior vena cava structure is normal. RA pressures is estimated to be 3 mmHg (IVC diameter <21 mm and decreases >50% during inspiration). Mitral Valve Mitral valve structure is normal. There is no significant mitral valve regurgitation. There is no significant stenosis noted. Tricuspid Valve Tricuspid valve structure is normal. There is no significant regurgitation. There is no significant tricuspid valve stenosis. Aortic Valve The aortic valve is trileaflet. The leaflets are not thickened and exhibit normal excursion. There is no regurgitation or stenosis. Pulmonic Valve The pulmonic valve was not well visualized. No significant pulmonic valve regurgitation. No significant pulmonary valve stenosis noted. Ascending Aorta The aorta appears normal in size. Pericardium Pericardium appears normal. There is no pericardial effusion. Study Details Overall the study quality was adequate. Additional technique includes 3D imaging and postprocessing performed without an independent workstation. The underlying ECG rhythm was sinus rhythm. Wall Scoring Baseline Score Index: 1.00 The left ventricular wall motion is normal. us Garfield Rosenbaum MD CV ECHO PROCEDURES Final Result * Home sleep test (08/01/2025 10:24 AM EDT) us Garfield Rosenbaum MD SLEEP CENTER ORDERABLES Final R esult * POC Urine Auto W/O Micro (07/23/2025 10:22 AM EDT) Glucose UA POC Negative Negative, Trace mg/dL Ketones UA POC Negative Negative Protein UA POC Negative Negative mg/dL Nitrite UA POC Negative Negative Leukocytes UA POC Negative Negative Urine Urine specimen obtained by clean catch procedure / Unknown 07/23/2025 10:22 AM EDT Cori BAINS POINT OF CARE TEST ENTE R/EDJOSE L ORDERABLES Final Result * Pulmonary function testing: Spirometry with Bronchodilator, Nitrogen Wash Out, Carbon Monoxide Diffusing Capacity (07/19/2025 10:51 AM EDT) Narrative Garfield Rosenbaum MD - 07/19/2025 11:28 AM EDT Spirometry without obstruction or significant bronchodilator response. FEV1 and FVC are within normal limits. Lung volumes normal based on TLC. There is reduction in RV/ERV likely related to BMI. Diffusion capacity is normal. Summary: Low RV/ERV likely in the setting of obesity related lung disease. Otherwise normal PFT's. None prior for comparison. Garfield Rosenbaum MD PFT ORDERABLES Final Result * US Pelvis Non OB Complete (07/10/2025 2:49 PM EDT) Anatomical Region Laterality Modality Body, Pelvis Ultrasound 07/10/2025 2:43 PM EDT Narrative 07/10/2025 3:11 PM EDT Female Pelvis (Signed Final 07/10/2025 03:11 pm) PATIENT INFO: ID #: [id number] : [birth year] (40 yrs)(F) Name: EM FLORES Visit Date: 07/10/2025 02:43 pm PERFORMED BY: Attending: Dyllan Carreno MD Performed By: Darlene Ariza RDMS Referred By: CORI SIERRA [facility] Ref. Address: [address] [place] [address] Location: [facility] Ultrasound (OBU) SERVICE(S) PROVIDED: US Pelvic Complete 27914 US Transvaginal 70998 INDICATIONS: Irregular menstruation, unspecified N92.6 TECHNIQUE/SCAN QUALITY: Technique: A transabdominal and a transvaginal scan were completed at today's visit Scan Quality: Satisfactory. COMPARISON: None CLINICAL INFORMATION: Age: 40 Menses: Irregular. UTERUS: Size (cm) L: 7.57 W: 4.37 H: 3.64 Vol(ml): 63.05 Position: Anteverted, anteflexed. Comment: Normal appearance. Normal size and echotexture. ENDOMETRIUM: Thickness: 7.31 mm Comment: The endometrial cavity is symmetric. The endometrial lining is regular. Single layer thickness measures 0.37 cm. CERVIX: No abnormality visualized. RIGHT OVARY: Size(cm): 2.43 x 2.46 x 1.97 Vol(ml): 6.17 Comment: Normal appearance. The ovary is located between the uterus and the pelvic sidewall. RIGHT ADNEXA: Comment: No abnormality visualized. LEFT OVARY: Size(cm): 3.01 x 2.23 x 2.48 Vol(ml): 8.72 Comment: Normal appearance. The ovary is located between the uterus and the pelvic sidewall. LEFT ADNEXA: Comment: No abnormality visualized. CUL-DE-SAC: There is no free fluid in the cul de sac. BLADDER: Distended with regular contour. COMMENTS: Ms. Flores is referred today for irregular menses, facial hair, and weight gain. Her testosterone is elevated. Concerns for PCOS. This is a negative scan of the pelvis. Dyllan Carreno MD Electronically Signed Final Report 07/10/2025 03:11 pm Procedure Dyllan Dukes MD - 07/10/2025 Female Pelvis (Signed Final 07/10/2025 03:11 pm) PATIENT INFO: ID #: [id number] : [birth year] (40 yrs)(F) Name: EM FLORES Visit Date: 07/10/2025 02:43 pm PERFORMED BY: Attending: Dyllan Carreno MD Performed By: Darlene Ariza RDMS Referred By: CORI SIERRA [facility] Ref. Address: [address] [place] [address] [place] [address] Location: [facility] Ultrasound (OBU) SERVICE(S) PROVIDED: US Pelvic Complete 48287 US Transvaginal [address]1654 INDICATIONS: Irregular menstruation, unspecified N92.6 TECHNIQUE/SCAN QUALITY: Technique: A transabdominal and a transvaginal scan were completed at today's visit Scan Quality: Satisfactory. COMPARISON: None CLINICAL INFORMATION: Age: 40 Menses: Irregular. UTERUS: Size (cm) L: 7.57 W: 4.37 H: 3.64 Vol(ml): 63.05 Position: Anteverted, anteflexed. Comment: Normal appearance. Normal size and echotexture. ENDOMETRIUM: Thickness: 7.31 mm Comment: The endometrial cavity is symmetric. The endometrial lining is regular. Single layer thickness measures 0.37 cm. CERVIX: No abnormality visualized. RIGHT OVARY: Size(cm): 2.43 x 2.46 x 1.97 Vol(ml): 6.17 Comment: Normal appearance. The ovary is located between the uterus and the pelvic sidewall. RIGHT ADNEXA: Comment: No abnormality visualized. LEFT OVARY: Size(cm): 3.01 x 2.23 x 2.48 Vol(ml): 8.72 Comment: Normal appearance. The ovary is located between the uterus and the pelvic sidewall. LEFT ADNEXA: Comment: No abnormality visualized. CUL-DE-SAC: There is no free fluid in the cul de sac. BLADDER: Distended with regular contour. COMMENTS: Ms. Flores is referred today for irregular menses, facial hair, and weight gain. Her testosterone is elevated. Concerns for PCOS. This is a negative scan of the pelvis. Dyllan Carreno MD Electronically Signed Final Report 07/10/2025 03:11 pm us Cori Sierra [facility] US PROCEDURES Final Result * US Pelvis Transvaginal Non OB (07/10/2025 2:49 PM EDT) Anatomical Region Laterality Modality Body Ultrasound 07/10/2025 2:43 PM EDT Narrative 07/10/2025 3:11 PM EDT Female Pelvis (Signed Final 07/10/2025 03:11 pm) PATIENT INFO: ID #: [id number] : [birth year] (40 yrs)(F) Name: EM FLORES Visit Date: 07/10/2025 02:43 pm PERFORMED BY: Attending: Dyllan Carreno MD Performed By: Darlene Ariza RDMS Referred By: [facility]I [facility] Ref. Address: [address] [place] [address] Location: [facility] Ultrasound (OBU) SERVICE(S) PROVIDED: US Pelvic Complete 09278 US Transvaginal 05573 INDICATIONS: Irregular menstruation, unspecified N92.6 TECHNIQUE/SCAN QUALITY: Technique: A transabdominal and a transvaginal scan were completed at today's visit Scan Quality: Satisfactory. COMPARISON: None CLINICAL INFORMATION: Age: 40 Menses: Irregular. UTERUS: Size (cm) L: 7.57 W: 4.37 H: 3.64 Vol(ml): 63.05 Position: Anteverted, anteflexed. Comment: Normal appearance. Normal size and echotexture. ENDOMETRIUM: Thickness: 7.31 mm Comment: The endometrial cavity is symmetric. The endometrial lining is regular. Single layer thickness measures 0.37 cm. CERVIX: No abnormality visualized. RIGHT OVARY: Size(cm): 2.43 x 2.46 x 1.97 Vol(ml): 6.17 Comment: Normal appearance. The ovary is located between the uterus and the pelvic sidewall. RIGHT ADNEXA: Comment: No abnormality visualized. LEFT OVARY: Size(cm): 3.01 x 2.23 x 2.48 Vol(ml): 8.72 Comment: Normal appearance. The ovary is located between the uterus and the pelvic sidewall. LEFT ADNEXA: Comment: No abnormality visualized. CUL-DE-SAC: There is no free fluid in the cul de sac. BLADDER: Distended with regular contour. COMMENTS: Ms. Flores is referred today for irregular menses, facial hair, and weight gain. Her testosterone is elevated. Concerns for PCOS. This is a negative scan of the pelvis. Dyllan Carreno MD Electronically Signed Final Report 07/10/2025 03:11 pm Procedure Note Dyllan Carreno MD - 07/10/2025 Female Pelvis (Signed Final 07/10/2025 03:11 pm) PATIENT INFO: ID #: [id number] : [birth year] (40 yrs)(F) Name: EM FLORES Visit Date: 07/10/2025 02:43 pm PERFORMED BY: Attending: Dyllan Carreno MD Performed By: Darlene Ariza RDMS Referred By: CORI SIERRA CNM Ref. Address: [address] [place] [id number] Location: [facility] Ultrasound (OBU) SERVICE(S) PROVIDED: Pelvic Complete 19550 US Transvaginal 34560 INDICATIONS: Irregular menstruation, unspecified N92.6 TECHNIQUE/SCAN QUALITY: Technique: A transabdominal and a transvaginal scan were completed at today's visit Scan Quality: Satisfactory. COMPARISON: None CLINICAL INFORMATION: Age: 40 Menses: Irregular. UTERUS: Size (cm) L: 7.57 W: 4.37 H: 3.64 Vol(ml): 63.05 Position: Anteverted, anteflexed. Comment: Normal appearance. Normal size and echotexture. ENDOMETRIUM: Thickness: 7.31 mm Comment: The endometrial cavity is symmetric. The endometrial lining is regular. Single layer thickness measures 0.37 cm. CERVIX: No abnormality visualized. RIGHT OVARY: Size(cm): 2.43 x 2.46 x 1.97 Vol(ml): 6.17 Comment: Normal appearance. The ovary is located between the uterus and the pelvic sidewall. RIGHT ADNEXA: Comment: No abnormality visualized. LEFT OVARY: Size(cm): 3.01 x 2.23 x 2.48 Vol(ml): 8.72 Comment: Normal appearance. The ovary is located between the uterus and the pelvic sidewall. LEFT ADNEXA: Comment: No abnormality visualized. CUL-DE-SAC: There is no free fluid in the cul de sac. BLADDER: Distended with regular contour. COMMENTS: Ms. Flores is referred today for irregular menses, facial hair, and weight gain. Her testosterone is elevated. Concerns for PCOS. This is a negative scan of the pelvis. Dyllan Carreno MD Electronically Signed Final Report 07/10/2025 03:11 pm Cori Sierra CNM IM US PROCEDURES Final Result * HPV genotype (07/03/2025 11:44 AM EDT) HPV Type 16 Negative Negative LAB MOLECULAR DIAGNOSTICS METHOD 07/07/2025 3:33 AM EDT [facility] HPV Type 18/45 Negative Negative LAB MOLECULAR DIAGNOSTICS METHOD 07/07/2025 3:33 AM EDT [facility] Brushing/Spatula Cervix uteri structure / Unknown 07/03/2025 11:44 AM EDT 07/03/2025 11:49 AM EDT Cori Sierra CNM LAB MOLECULAR DIAGNOSTI CS ORDERABLES Final Result Performing Organization Address City/[facility]/ZIP Co de Phone Number [facility] [address] [place] [phone], * HPV high risk molecular study (07/03/2025 11:43 AM EDT) [facility] HPV Negative Negative LAB MOLECULAR DIAGNOSTICS METHOD 07/04/2025 2:16 AM EDT [facility] Brushing Cervix uteri structure / Unknown 07/03/2025 11:43 AM EDT 07/03/2025 11:48 AM EDT Cori Sierra CNM LAB MOLECULAR DIAGNOSTI CS ORDERABLES Final Result [facility] [address] [place] [phone], * Hepatitis C antibody (06/25/2025 2:36 PM EDT) Hepatitis C Antibody Negative Negative LAB CHEMISTRY METHOD 06/28/2025 3:46 PM EDT [facility] Blood Venous blood specimen / Unknown Venipuncture / Unknown 06/25/2025 2:36 PM EDT 06/25/2025 3:53 PM EDT Cori Sierra [facility] LAB BLOOD ORDERABLES Fi nal Result Performing Organization Address [facility]/ZIP Co de Phone Number [facility] [address] [place] [address], [place] [phone] * HIV 1,2 antibody, p24 antigen with reflex to differentiation (06/25/2025 2:36 PM EDT) Pathologist [facility] HIV Combo AB/AG Negative Negative LAB CHEMISTRY METHOD 06/25/2025 11:46 PM EDT [facility] Blood Venous blood specimen / Unknown Venipuncture / Unknown 06/25/2025 2:36 PM EDT 06/25/2025 3:53 PM EDT Narrative [facility] - 06/25/2025 11:46 PM EDT Nonreactive result does not rule out HIV infection. Cori Sierra [facility] LAB BLOOD ORDERABLES Fi nal Result Performing Organization Address [facility] Co de Phone Number [facility] [address] [place] [address], [place] [phone] * Basic Metabolic Panel (BMP) (11/19/2024 1:22 AM EST) [facility] Sodium 142 135 - 145 mmol/L LAB CHEMISTRY METHOD 11/19/2024 2:31 AM EST [facility] Potassium 4.1 3.5 - 5.1 mmol/L LAB CHEMISTRY METHOD 11/19/2024 2:31 AM EST [facility] Chloride 107 98 - 107 mmol/L LAB CHEMISTRY METHOD 11/19/2024 2:31 AM EST [facility] CO2 27 24 - 32 mmol/L LAB CHEMISTRY METHOD 11/19/2024 2:31 AM EST [facility] Anion Gap 8 5 - 14 LAB CHEMISTRY METHOD 11/19/2024 2:31 AM [facility] Glucose 79 70 - 199 mg/dL LAB CHEMISTRY METHOD 11/19/2024 2:31 AM [facility] BUN 10 7 - 17 mg/dL LAB CHEMISTRY METHOD 11/19/2024 2:31 AM EST [facility] Creatinine 0.80 0.50 - 1.00 mg/dL LAB CHEMISTRY METHOD 11/19/2024 2:31 AM EST [facility] eGFR 95 >=60 mL/min/1. 73m2 LAB CHEMISTRY METHOD 11/19/2024 2:31 AM [facility] Comment:Calculation based on the Chronic Kidney Disease Epidemiology Collaboration (CKD-EPI) equation refit without adjustment for race. BUN/Creatinine Ratio 12.5 12.0 - 20.0 LAB CHEMISTRY METHOD 11/19/2024 2:31 AM EST [facility] Calcium 8.5 8.4 - 10.2 mg/dL LAB CHEMISTRY METHOD 11/19/2024 2:31 AM [facility] Blood Venous blood specimen / Unknown Venipuncture / Unknown 11/19/2024 1:22 AM EST 11/19/2024 1:38 AM EST Freya Nguyen MD LAB BLOOD ORDERABLES Fi nal Result [facility] [address] [place] [address], [place] [phone] * Lipid panel (05/21/2024) Triglycerides 123 <=150 mg/dL Cholesterol 188 0 - 200 mg/dL HDL 65 35 - 88 mg/dL LDL Cholesterol 98 50 - 130 mg/dL Blood Venous blood specimen / Unknown Yesi Provider LAB BLOOD ORDERABLES Celsa l Result * (ABNORMAL) Hemoglobin A1c (04/21/2024) Hemoglobin A1C 5.8(A) <=5.7 % Blood Venous blood specimen / Unknown Historical Provider LAB BLOOD ORDERABLES Celsa l Result from Last 3 Months or Most Recently Relevant to Health Maintenance Insurance [place] Care Teams Watch [employer] Relationship Specialty Start Date End Date Raymond Johnson MD [address] [place] [id number] PCP - General Internal Medicine 07/19/25
[2025-09-28 07:23] VITALS: BP 116/69; PULSE 75; RESP 20; TEMP 36.7; O2SAT 98
== END 2025-09-28 07:23 | disposition home or self-care (01) ==
PROVIDERS: Emergency Provider Emergency Medicine
DX: Z76.0 Encounter for issue of repeat prescription (principal)
CPT/HCPCS: 99282